=== PATIENT | female | born 1990 | race African-American/Black ===

== ENCOUNTER 2019-02-11 11:32 | Inpatient (IN) | payer OTHER ==
[2019-02-11] MEDS ORDERED: OXYTOCIN 30 UNITS/LR 500 ML IV ×2 (12:00)
[2019-02-11] MEDS ORDERED: BUTORPHANOL 2 MG INJ IV (12:00)
[2019-02-11] MEDS ORDERED: AMPICILLIN 2 GM/NS (PMX) 100 ML IV (12:00)
[2019-02-11] MEDS ORDERED: CARBOPROST 250 MCG INJ IM (12:00)
[2019-02-11] MEDS ORDERED: LIDOCAINE 1% (MPF) 30 ML INJ INJ (12:00)
[2019-02-11] MEDS ORDERED: METHYLERGONOVINE 0.2 MG INJ IM (12:00)
[2019-02-11] MEDS ORDERED: MISOPROSTOL 200 MCG TAB PR (12:00)
[2019-02-11] MEDS ORDERED: OXYCODONE/ASPIRIN (4.88/325) TAB PO (12:00)
[2019-02-11 12:38] LABS: ADD MAN DIFF? NO
[2019-02-11 12:40] LABS: WHITE BLOOD COUNT 7.7 10^3/ul (4.8-10.8)
[2019-02-11 12:40] LABS: BASOPHILS % 0.4 % (0.0-2.0); EOSINOPHILS # 0.1 10^3/ul (0.0-0.5); EOSINOPHILS % 1.2 % (0.0-7.0); HEMATOCRIT 33.2 % (37.0-47.0); HEMOGLOBIN 10.5 g/dl (12.0-16.0); LYMPHOCYTES # 1.4 10^3/ul (0.8-2.9); LYMPHOCYTES % 17.9 % (15.0-51.0); MEAN CORPUSCULAR HEMOGLOBIN 27.9 pg (29.0-33.0); MEAN CORPUSCULAR HGB CONC 31.6 g/dl (32.0-37.0); MEAN CORPUSCULAR VOLUME 88.1 fl (82.0-101.0); MEAN PLATELET VOLUME 9.9 fl (7.4-10.4); MONOCYTE # 0.9 10^3/ul (0.3-0.9); MONOCYTES % 11.1 % (0.0-11.0); NEUTROPHIL # 5.3 10^3/ul (1.6-7.5); PLATELET COUNT 291 10^3/UL (140-415); RED BLOOD COUNT 3.77 10^6/ul (4.20-5.40)
[2019-02-11] MEDS: LACTATED RINGER'S 1,000 ML IV ×3 (12:51→15:04)
[2019-02-11 13:16] LABS: INR 0.89; PROTIME 12.2 Sec (11.9-14.9)
[2019-02-11 13:17] LABS: PARTIAL THROMBOPLASTIN TIME 28.7 Sec (23.0-35.0)
[2019-02-11 13:29] LABS: HEPATITIS B SURFACE ANTIGEN NEGATIVE (NEGATIVE)
[2019-02-11] MEDS: CEFAZOLIN 2 GM/50 ML (PMX) 50 ML IVPB ×3 (13:36→22:00)
[2019-02-11] MEDS ORDERED: FENTAnyl 2MCG/ML-ROPIV 0.2% 100 ML (13:39)
[2019-02-11] MEDS ORDERED: ONDANSETRON 4 MG INJ IV (14:00)
[2019-02-11] MEDS ORDERED: NALOXONE (0.4 MG/ML) INJ IV (14:00)
[2019-02-11] MEDS ORDERED: NALBUPHINE HCL (10 MG/1 ML) INJ IV (14:00)
[2019-02-11] MEDS ORDERED: AMPICILLIN 1 GM/NS (PMX) 50 ML IV (16:00)
[2019-02-11 16:16] LABS: RAPID PLASMA REAGIN NONREACTIVE (NR)
[2019-02-11 16:30] LABS: ALANINE AMINOTRANSFERASE 24 IU/L (13-69); ALBUMIN 3.3 g/dl (3.3-4.9); ALBUMIN/GLOBULIN RATIO 0.97; ALKALINE PHOSPHATASE 189 IU/L (42-121); ANION GAP 6 (5-13); ASPARTATE AMINO TRANSFERASE 27 IU/L (15-46); BILIRUBIN,INDIRECT 0.4 mg/dl (0-1.1); BILIRUBIN,TOTAL 0.4 mg/dl (0.2-1.3); BLOOD UREA NITROGEN 6 mg/dl (7-20); CALCIUM 9.1 mg/dl (8.4-10.2); CARBON DIOXIDE 25 mmol/L (21-31); CHLORIDE 108 mmol/L (97-110); CREATININE 0.66 mg/dl (0.44-1.00); Estimated GFR > 60 mL/min (>60); GLUCOSE 72 mg/dl (70-220); POTASSIUM 4.3 mmol/L (3.5-5.1); SODIUM 139 mmol/L (135-144); TOTAL PROTEIN 6.7 g/dl (6.1-8.1)
[2019-02-11] MEDS: OXYTOCIN 30 UNITS/LR 500 ML IV ×2 (19:53→23:23)
[2019-02-11] MEDS: FENTAnyl 2MCG/ML-ROPIV 0.2% 100 ML BAG EPI (19:54)
[2019-02-11] MEDS ORDERED: MINERAL OIL LIGHT 10 ML VIAL TOP (23:30)
[2019-02-11] MEDS: IBUPROFEN 600 MG TAB PO (23:39)
[2019-02-12] MEDS: LACTATED RINGER'S 1,000 ML IV* ×3 (00:27→16:27)
[2019-02-12] MEDS ORDERED: MISOPROSTOL 200 MCG TAB PR (00:30)
[2019-02-12] MEDS ORDERED: METHYLERGONOVINE 0.2 MG INJ IM (00:30)
[2019-02-12] MEDS ORDERED: OXYTOCIN 30 UNITS/LR 500 ML IV (00:30)
[2019-02-12] MEDS ORDERED: ACETAMINOPHEN 325 MG TAB PO (00:30)
[2019-02-12] MEDS ORDERED: CARBOPROST 250 MCG INJ IM (00:30)
[2019-02-12] MEDS ORDERED: HYDROCODONE/APAP (5/325) TAB PO (00:30)
[2019-02-12] MEDS ORDERED: DIBUCAINE 1% 30 GM OINT TOP (00:30)
[2019-02-12] MEDS: IBUPROFEN 600 MG TAB PO ×3 (06:08→17:55)
[2019-02-12] MEDS: BENZOCAINE 20% 56 ML SPRAY TOP (06:08)
[2019-02-12] MEDS: WITCH HAZEL/GLYCERIN PAD PR (06:08)
[2019-02-12 06:23] LABS: WHITE BLOOD COUNT 10.6 10^3/ul (4.8-10.8)
[2019-02-12 06:23] LABS: ADD MAN DIFF? NO; BASOPHILS % 0.3 % (0.0-2.0); EOSINOPHILS # 0.1 10^3/ul (0.0-0.5); EOSINOPHILS % 0.7 % (0.0-7.0); HEMATOCRIT 28.5 % (37.0-47.0); HEMOGLOBIN 9.2 g/dl (12.0-16.0); LYMPHOCYTES # 1.6 10^3/ul (0.8-2.9); LYMPHOCYTES % 14.7 % (15.0-51.0); MEAN CORPUSCULAR HEMOGLOBIN 27.7 pg (29.0-33.0); MEAN CORPUSCULAR HGB CONC 32.3 g/dl (32.0-37.0); MEAN CORPUSCULAR VOLUME 85.8 fl (82.0-101.0); MEAN PLATELET VOLUME 10.8 fl (7.4-10.4); MONOCYTE # 1.1 10^3/ul (0.3-0.9); MONOCYTES % 9.9 % (0.0-11.0); NEUTROPHIL # 7.9 10^3/ul (1.6-7.5); PLATELET COUNT 244 10^3/UL (140-415); RED BLOOD COUNT 3.32 10^6/ul (4.20-5.40); RED CELL DISTRIBUTION WIDTH 14.2 % (11.5-14.5)
[2019-02-12] MEDS: SENNA/DOCUSATE NA (8.6MG/50MG) TAB PO ×2 (09:54→21:54)
[2019-02-13] MEDS: IBUPROFEN 600 MG TAB PO ×3 (00:01→11:43)
[2019-02-13] MEDS: LACTATED RINGER'S 1,000 ML IV* (00:27)
[2019-02-13] MEDS: SENNA/DOCUSATE NA (8.6MG/50MG) TAB PO (08:58)
[2019-02-13] MEDS: DIPHTH/TET/ACEL PERTUSS (ADULT) 0.5 ML VIAL IM* (09:00)
== END 2019-02-13 14:45 | disposition home or self-care (01) | DRG 807 ==
LOC: OBT 11:32 → PP1 02-12 00:45 → L-D 11:32 → OBT 11:55 → L-D 11:55
PROVIDERS: Obstetrics & Gynecology
PROC: 10E0XZZ Delivery of Products of Conception, External Approach (ICD-10-PCS; principal; 2019-02-11)
DX: O80 Encounter for full-term uncomplicated delivery (principal); Z37.0 Single live birth; Z3A.38 38 weeks gestation of pregnancy
CPT/HCPCS: 62322; 76815; 76818; 80053; 85025; 85610; 85730; 86592; 86850; 86900; 86901; 87340